=== PATIENT | male | born 1940 | race Caucasian/White ===

== ENCOUNTER → 2021-03-04 | Outpatient (CLI) | payer OTHER, MEDICARE ==
[~2021-03-04] MED LIST: CYCLOBENZAPRINE10 MG PO; IMDUR ER TAB 3030 MG PO; METOPROLOL TART25 MG PO; OXYCODONE HCL5 MG PO; PLAVIX 75 MG TA75 MG PO; PREVACID30 MG PO; ULTRAM50 MG PO; VASOTEC2.5 MG PO; ZETIA 10 MG TAB10 MG PO; ZOFRAN ODT 4 MG4 MG PO; ZOFRAN ODT 4 MG4 MG SL
== END ==
LOC: KOH-I 11:14
DX: M17.31 Unilateral post-traumatic osteoarthritis, right knee (principal); M17.11 Unilateral primary osteoarthritis, right knee
CPT/HCPCS: 73562

== ENCOUNTER 2021-08-21 20:55 | Emergency (ER) | payer MEDICARE ==
[2021-08-21 21:36] LABS: HEMOGLOBIN 16.1 gm/dl (14.0-17.5); RED BLOOD COUNT 5.24 M/UL (4.20-5.50); WHITE BLOOD COUNT 6.9 K/UL (4.5-11.0)
[2021-08-21 21:56] LABS: BUN/CREATININE RATIO 16 (0-10)
[2021-08-22] MEDS ORDERED: TORADOL 10 MG T10 MG PO (00:24)
[2021-08-22] MEDS ORDERED: ZOFRAN ODT 4 MG4 MG GT (00:24)
== END 2021-08-22 01:07 | disposition home or self-care (01) ==
LOC: ER1 20:55
PROVIDERS: Family Medicine
DX: R10.9 Unspecified abdominal pain (principal); I51.9 Heart disease, unspecified; Z88.0 Allergy status to penicillin
CPT/HCPCS: 80053; 81001; 83690; 85025; 96374; 96375; 99284; Q9967

== ENCOUNTER 2021-09-04 08:30 | Emergency (ER) | payer MEDICARE ==
[~2021-09-04 08:30] MED LIST changes: +TORADOL 10 MG T10 MG PO; +ZOFRAN ODT 4 MG4 MG GT
[2021-09-04] MEDS ORDERED: CELEBREX100 MG PO (13:05)
== END 2021-09-04 13:18 | disposition home or self-care (01) ==
LOC: ER1 08:30
DX: M25.511 Pain in right shoulder (principal)
CPT/HCPCS: 73030; 73200; 96374; 99284; J1885

== ENCOUNTER 2022-01-21 17:57 | Emergency (ER) | payer MEDICARE ==
[~2022-01-21 17:57] MED LIST changes: +CELEBREX100 MG PO
[2022-01-21 18:30] LABS: HEMOGLOBIN 14.2 gm/dl (14.0-17.5); RED BLOOD COUNT 4.73 M/UL (4.20-5.50); WHITE BLOOD COUNT 7.9 K/UL (4.5-11.0)
[2022-01-21 19:17] LABS: BUN/CREATININE RATIO 23 (0-10)
== END 2022-01-21 20:54 | disposition home or self-care (01) ==
LOC: ER1 17:57
PROVIDERS: Emergency Medicine
DX: R10.13 Epigastric pain (principal); R07.9 Chest pain, unspecified; N40.0 Benign prostatic hyperplasia without lower urinary tract symptoms; N28.9 Disorder of kidney and ureter, unspecified; Z95.1 Presence of aortocoronary bypass graft; K21.9 Gastro-esophageal reflux disease without esophagitis; Z95.5 Presence of coronary angioplasty implant and graft; Z88.0 Allergy status to penicillin; Z79.02 Long term (current) use of antithrombotics/antiplatelets
CPT/HCPCS: 71045; 80053; 82550; 82553; 83690; 84484; 85025; 93005; 99284; Q9967

== ENCOUNTER → 2022-03-29 | Outpatient (CLI) | payer MEDICARE | LOC: HEART 5 08:00 | DX: I25.10 Atherosclerotic heart disease of native coronary artery without angina pectoris (principal); R06.02 Shortness of breath; I08.1 Rheumatic disorders of both mitral and tricuspid valves; I27.20 Pulmonary hypertension, unspecified | CPT/HCPCS: 93306 ==

== ENCOUNTER → 2022-05-12 | Outpatient (CLI) | payer MEDICARE | LOC: KOH-I 15:45 | DX: R31.29 Other microscopic hematuria (principal) | CPT/HCPCS: 74176 ==

== ENCOUNTER → 2022-05-23 | Outpatient (CLI) | payer MEDICARE | LOC: MRI 10:04 | DX: N40.0 Benign prostatic hyperplasia without lower urinary tract symptoms (principal) | CPT/HCPCS: 36415; 82565; 84520 ==